=== PATIENT | female | born 1945 | race Caucasian/White ===

== ENCOUNTER 2020-04-04 09:10 | Emergency (ER) | payer MEDICARE, OTHER ==
[2020-04-04] MEDS: Sodium Chloride 0.9% 10 ML Syringe FLUSH PRN ×2 (09:30→15:31)
--- NOTE | 2020-04-04 09:31 | EDM.PDOC ---
ED HPI GENERAL MEDICAL PROBLEM - General Time Seen by Provider: 04/04/20 09:30 Source of Information: Reports: Patient History Limitations: Reports: No Limitations - History of Present Illness INITIAL COMMENTS - FREE TEXT/NARRATIVE: 74-year-old female with history of COPD who reports cough with some increasing shortness of breath and wheezing on 03/31/2020 and she contacted her doctor and was placed on Zithromax and prednisone. She felt that she got better the first day but for the past few days has had somewhat worsening cough with green and yellow phlegm production and this morning at approximately 7 AM after getting out of bed she developed acute onset of severe difficulty breathing and she tried her nebulizer at home without any relief. EMS was called and the patient was transported to our facility with a nebulizer treatment being given en route. The patient denies any chest pain. She has had no nausea or vomiting. She has had no definite fever. She denies any pain. Specifically no chest pain or abdominal pain or back pain. She would rate her pain as a 0/10. She has been eating and drinking normally. No dysuria or hematuria. No leg swelling. She has pretty much been quarantining at home and has had no known exposure to COVID. There are no other associated signs or symptoms. There are no other modifying factors. 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 - Related Data Allergies Allergy/AdvReac Type Severity Reaction Status Date / Time acetaminophen [From Vicodin] Allergy Itching Verified 12/25/13 09:35 hydrocodone bitartrate Allergy Itching Verified 12/25/13 09:35 [From Vicodin] Home Meds: Home Meds Albuterol Sulfate [Albuterol Sulfate HFA] 2 inhalation PO QID PRN 12/25/13 [History] Aspirin [Millie Chewable Aspirin] 81 mg PO DAILY 12/25/13 [History] Furosemide [Lasix] 10 mg PO DAILY 12/25/13 [History] Lactobacillus Acidophilus [Probiotic] 1 each PO DAILY 12/25/13 [History] Lisinopril 5 mg PO DAILY 12/25/13 [History] Metoprolol Tartrate [Lopressor] 25 mg PO BID 12/25/13 [History] Multivitamin [Multi-Vitamin Daily] 1 each PO DAILY 12/25/13 [History] Pantoprazole [ProTONIX] 40 mg PO DAILY 12/25/13 [History] Albuterol/Ipratropium [DuoNeb 3.0-0.5 MG/3 ML] 1 inh QID PRN 04/04/20 [History] Azithromycin [Zithromax] 250 mg PO DAILY 04/04/20 [History] Budesonide [Pulmicort] 0.5 mg IH BID 04/04/20 [History] Calcium Citrate/Vitamin D3 [Citracal + D Maximum Caplet] 1 tab DAILY 04/04/20 [History] Clopidogrel [Plavix] 75 mg PO DAILY 04/04/20 [History] Formoterol [Perforomist] 20 mcg INH BID 04/04/20 [History] Tiotropium [Spiriva] 18 mcg INH DAILY 04/04/20 [History] atorvaSTATin [Lipitor] 80 mg PO DAILY 04/04/20 [History] predniSONE [Prednisone] 40 mg PO DAILY 04/04/20 [History] Past Medical History Cardiovascular History: Reports: CAD, Heart Failure, High Cholesterol, Hypertension, [place], PVD Respiratory History: Reports: COPD Gastrointestinal History: Reports: GERD - Past Surgical History Cardiovascular Surgical History: Reports: Coronary Artery Stent, Percutaneous Transluminal Angioplasty, Other (See Below) (Aortobifemoral bypass graft. Femorofemoral bypass graft) Social & Family History - Tobacco Use Tobacco Use Status *Q: Former Tobacco User (Quit 8-9 years ago but was heavy smoker prior to that) - Alcohol Use Alcohol Use History: Yes Alcohol Use Frequency: Daily (One cocktail daily.) - Living Situation & Occupation Living situation: Reports: Occupation: Retired Social History Comment: Patient is a FULL CODE ED ROS GENERAL - Review of Systems Review Of Systems: See Below Constitutional: Reports: No Symptoms HEENT: Reports: No Symptoms Respiratory: Reports: Shortness of Breath, Wheezing, Cough, Sputum Cardiovascular: Reports: No Symptoms Endocrine: Reports: No Symptoms GI/Abdominal: Reports: No Symptoms : Reports: No Symptoms Musculoskeletal: Reports: No Symptoms Skin: Reports: No Symptoms Neurological: Reports: No Symptoms Hematologic/Lymphatic: Reports: No Symptoms Immunologic: Reports: No Symptoms ED EXAM, GENERAL - Physical Exam Exam: See Below Exam Limited By: No Limitations General Appearance: Alert, Moderate Distress (Some respiratory distress but awake and alert and appropriately responsive and interactive.), Obese Eye Exam: Bilateral Eye: EOMI, Normal Inspection Ears: Normal External Exam, Hearing Grossly Normal Ear Exam: Bilateral Ear: Auricle Normal Nose: Normal Inspection, Normal Mucosa, No Blood Throat/Mouth: Normal Inspection, Normal Oropharynx, Normal Voice, No Airway Compromise Head: Atraumatic, Normocephalic Neck: Normal Inspection, Supple, Non-Tender, Full Range of Motion Respiratory/Chest: Chest Non-Tender, Rhonchi, Wheezing, Accessory Muscle Use, Other (Poor air movement) Cardiovascular: Normal Peripheral Pulses, Regular Rate, Rhythm, No Gallop, No Murmur Peripheral Pulses: 0: Dorsalis Pedis (R) (No palpable right DP good perfusion to that foot with capillary refill that was brisk), 2+: Radial (L), Radial (R), D orsalis Pedis (L) GI/Abdominal: Normal Bowel Sounds, Soft, Non-Tender, No Mass Back Exam: Normal Inspection, Full Range of Motion Extremities: Normal Inspection, Normal Range of Motion, Non-Tender, No Pedal Edema, Normal Capillary Refill Neurological: Alert, Oriented, CN II-XII Intact, Normal Cognition, No Motor/Sensory Deficits Psychiatric: Normal Affect Skin Exam: Warm, Dry, Intact, Normal Color, No Rash #1 Interpretation EKG Date: 04/04/20 Time: : Rhythm: NSR Rate (Beats/Min): 74 Coral: LAD-Left Coral Deviation (Slight left axis) P-Wave: Present QRS: Normal ST-T: Normal QT: Normal Comparison: NA - No Prior EKG Course - Vital Signs Last Recorded V/S: Last Vital Signs Temp 36.3 C 04/04/20 09:10 Pulse 90 04/04/20 09:10 Resp 27 H 04/04/20 09:10 BP 116/87 04/04/20 09:10 Pulse Ox 100 04/04/20 09:30 - Orders/Labs/Meds Labs: Laboratory Tests 04/04/20 04/04/20 04/04/20 Range/Units 09:30 09:30 09:30 WBC 12.0 H (3.0-10.3) x10-3/uL RBC 3.94 (3.60-5.20) x10(6)uL Hgb 12.5 (11.4-15.5) g/dL Hct 37.3 (34.2-48.2) % MCV 94.7 (76.7-100.5) fL MCH 31.7 (23.9-33.9) pg MCHC 33.5 (31.9-34.8) g/dL RDW 14.8 (12.3-16.5) % Plt Count 333 (151-488) x10(3)uL MPV 7.3 (7.1-12.4) fL Neut % (Auto) 77.1 H (30.8-76.2) % Lymph % (Auto) 15.3 L (18.4-52.1) % Park % (Auto) 5.7 (4.4-15.7) % Eos % (Auto) 1.6 (0.6-8.1) % Baso % (Auto) 0.3 (0.2-1.5) % Neut # (Auto) 9.3 H (1.5-6.3) x10-3/uL Lymph # (Auto) 1.8 (1.0-4.4) x10-3/uL Park # (Auto) 0.7 (0.3-1.0) x10-3/uL Eos # (Auto) 0.2 (0.0-0.8) x10-3/uL Baso # (Auto) 0.0 (0.0-0.1) x10-3/uL D-Dimer, Quantitative (0.0-0.59) mg/LFEU POC VBG pH (7.32-7.43) pH Units POC VBG pCO2 (41-51) mmHg POC VBG HCO3 (21-29) mmol/L VBG Base Excess (-2-3) mmol/L O2 Delivery Device Sodium 133 L (135-145) mmol/L Potassium 4.2 (3.5-5.3) mmol/L Chloride 96 L (100-110) mmol/L Carbon Dioxide 29 (21-32) mmol/L BUN 14 (7-18) mg/dL Creatinine 1.0 (0.55-1.02) mg/dL Est Cr Clr Drug Dosing TNP Estimated GFR (MDRD) 54 L (>60) BUN/Creatinine Ratio 14.0 (9-20) Glucose 115 (80-116) mg/dL Lactic Acid (0.4-2.0) mmol/L Calcium 9.4 (8.6-10.2) mg/dL Total Bilirubin 0.5 (0.1-1.3) mg/dL AST 19 (5-25) IU/L ALT 22 (12-36) U/L Alkaline Phosphatase 71 (56-112) IU/L Troponin I 11.0 (4.0-60.3) pg/mL C-Reactive Protein 0.3 L (0.5-0.9) mg/dL NT-Pro-B Natriuret Pep 1571 H* (<=125) pg/mL Total Protein 7.9 (6.0-8.0) g/dL Albumin 3.7 (3.2-4.6) g/dL Globulin 4.2 g/dL Albumin/Globulin Ratio 0.9 Urine Color (YELLOW) Urine Appearance (CLEAR) Urine pH (5.0-6.5) Ur Specific [place] (1.010-1.025) Urine Protein (NEGATIVE) mg/dL Urine Glucose (UA) (NORMAL) mg/dL Urine Ketones (NEGATIVE) mg/dL Urine Occult Blood (NEGATIVE) Urine Nitrite (NEGATIVE) Urine Bilirubin (NEGATIVE) Urine Urobilinogen (NEGATIVE) mg/dL Ur Leukocyte Esterase (NEGATIVE) Urine RBC (0-5) Urine WBC (0-5) Urine Bacteria (NS) SARS-CoV-2 RNA (SHAWANDA) (NEGATIVE) 04/04/20 04/04/20 04/04/20 Range/Units 09:30 09:30 09:30 WBC (3.0-10.3) x10-3/uL RBC (3.60-5.20) x10(6)uL Hgb (11.4-15.5) g/dL Hct (34.2-48.2) % MCV (76.7-100.5) fL MCH (23.9-33.9) pg MCHC (31.9-34.8) g/dL RDW (12.3-16.5) % Plt Count (151-488) x10(3)uL MPV (7.1-12.4) fL Neut % (Auto) (30.8-76.2) % Lymph % (Auto) (18.4-52.1) % Park % (Auto) (4.4-15.7) % Eos % (Auto) (0.6-8.1) % Baso % (Auto) (0.2-1.5) % Neut # (Auto) (1.5-6.3) x10-3/uL Lymph # (Auto) (1.0-4.4) x10-3/uL Park # (Auto) (0.3-1.0) x10-3/uL Eos # (Auto) (0.0-0.8) x10-3/uL Baso # (Auto) (0.0-0.1) x10-3/uL D-Dimer, Quantitative 2.99 H (0.0-0.59) mg/LFEU POC VBG pH 7.38 (7.32-7.43) pH Units POC VBG pCO2 43 (41-51) mmHg POC VBG HCO3 26 (21-29) mmol/L VBG Base Excess 1 (-2-3) mmol/L O2 Delivery Device Nasal cannula Sodium (135-145) mmol/L Potassium (3.5-5.3) mmol/L Chloride (100-110) mmol/L Carbon Dioxide (21-32) mmol/L BUN (7-18) mg/dL Creatinine (0.55-1.02) mg/dL Est Cr Clr Drug Dosing Estimated GFR (MDRD) (>60) BUN/Creatinine Ratio (9-20) Glucose (80-116) mg/dL Lactic Acid 1.9 (0.4-2.0) mmol/L Calcium (8.6-10.2) mg/dL Total Bilirubin (0.1-1.3) mg/dL AST (5-25) IU/L ALT (12-36) U/L Alkaline Phosphatase (56-112) IU/L Troponin I (4.0-60.3) pg/mL C-Reactive Protein (0.5-0.9) mg/dL NT-Pro-B Natriuret Pep (<=125) pg/mL Total Protein (6.0-8.0) g/dL Albumin (3.2-4.6) g/dL Globulin g/dL Albumin/Globulin Ratio Urine Color (YELLOW) Urine Appearance (CLEAR) Urine pH (5.0-6.5) Ur Specific [place] (1.010-1.025) Urine Protein (NEGATIVE) mg/dL Urine Glucose (UA) (NORMAL) mg/dL Urine Ketones (NEGATIVE) mg/dL Urine Occult Blood (NEGATIVE) Urine Nitrite (NEGATIVE) Urine Bilirubin (NEGATIVE) Urine Urobilinogen (NEGATIVE) mg/dL Ur Leukocyte Esterase (NEGATIVE) Urine RBC (0-5) Urine WBC (0-5) Urine Bacteria (NS) SARS-CoV-2 RNA (SHAWANDA) (NEGATIVE) 04/04/20 04/04/20 Range/Units 10:14 10:44 WBC (3.0-10.3) x10-3/uL RBC (3.60-5.20) x10(6)uL Hgb (11.4-15.5) g/dL Hct (34.2-48.2) % MCV (76.7-100.5) fL MCH (23.9-33.9) pg MCHC (31.9-34.8) g/dL RDW (12.3-16.5) % Plt Count (151-488) x10(3)uL MPV (7.1-12.4) fL Neut % (Auto) (30.8-76.2) % Lymph % (Auto) (18.4-52.1) % Park % (Auto) (4.4-15.7) % Eos % (Auto) (0.6-8.1) % Baso % (Auto) (0.2-1.5) % Neut # (Auto) (1.5-6.3) x10-3/uL Lymph # (Auto) (1.0-4.4) x10-3/uL Park # (Auto) (0.3-1.0) x10-3/uL Eos # (Auto) (0.0-0.8) x10-3/uL Baso # (Auto) (0.0-0.1) x10-3/uL D-Dimer, Quantitative (0.0-0.59) mg/LFEU POC VBG pH (7.32-7.43) pH Units POC VBG pCO2 (41-51) mmHg POC VBG HCO3 (21-29) mmol/L VBG Base Excess (-2-3) mmol/L O2 Delivery Device Sodium (135-145) mmol/L Potassium (3.5-5.3) mmol/L Chloride (100-110) mmol/L Carbon Dioxide (21-32) mmol/L BUN (7-18) mg/dL Creatinine (0.55-1.02) mg/dL Est Cr Clr Drug Dosing Estimated GFR (MDRD) (>60) BUN/Creatinine Ratio (9-20) Glucose (80-116) mg/dL Lactic Acid (0.4-2.0) mmol/L Calcium (8.6-10.2) mg/dL Total Bilirubin (0.1-1.3) mg/dL AST (5-25) IU/L ALT (12-36) U/L Alkaline Phosphatase (56-112) IU/L Troponin I (4.0-60.3) pg/mL C-Reactive Protein (0.5-0.9) mg/dL NT-Pro-B Natriuret Pep (<=125) pg/mL Total Protein (6.0-8.0) g/dL Albumin (3.2-4.6) g/dL Globulin g/dL Albumin/Globulin Ratio Urine Color Yellow (YELLOW) Urine Appearance Clear (CLEAR) Urine pH 5.0 (5.0-6.5) Ur Specific [place] 1.010 (1.010-1.025) Urine Protein Negative (NEGATIVE) mg/dL Urine Glucose (UA) Normal (NORMAL) mg/dL Urine Ketones Negative (NEGATIVE) mg/dL Urine Occult Blood Negative (NEGATIVE) Urine Nitrite Negative (NEGATIVE) Urine Bilirubin Negative (NEGATIVE) Urine Urobilinogen Normal (NEGATIVE) mg/dL Ur Leukocyte Esterase Negative (NEGATIVE) Urine RBC Not seen (0-5) Urine WBC Not seen (0-5) Urine Bacteria Not seen (NS) SARS-CoV-2 RNA (SHAWANDA) Negative (NEGATIVE) Meds: Medications Discontinued Medications Generic Name Dose Route Start Last Admin Trade Name Freq PRN Reason Stop Dose Admin Albuterol 2.5 mg 04/04/20 14:12 04/04/20 15:23 Proventil Neb Soln NEB 04/04/20 14:13 2.5 mg ONETIME ONE Administration Albuterol/Ipratropium 3 ml 04/04/20 14:12 04/04/20 15:23 Duoneb 3.0-0.5 Mg/3 Ml NEB 04/04/20 14:13 3 ml ONETIME ONE Administration Ceftriaxone Sodium 2 gm 04/04/20 14:14 04/04/20 15:24 Rocephin IVPUSH 04/04/20 14:15 2 gm ONETIME ONE Administration Iopamidol 75 ml 04/04/20 12:59 04/04/20 13:21 Isovue-370 (76%) IV 04/04/20 13:00 75 ml . DIRECTED ONE Administration Methylprednisolone Sodium Succinate 125 mg 04/04/20 10:12 04/04/20 10:22 Solu-Medrol IVPUSH 04/04/20 10:13 125 mg ONETIME ONE Administration Sodium Chloride 10 ml 04/04/20 09:45 04/04/20 15:31 Saline Flush FLUSH 10 ml ASDIRECTED PRN Administration Keep Vein Open - Radiology Interpretation Free Text/Narrative:: Portable chest x-ray showed no definite pneumonia. There was blunting of the left CPA. There is some increased pulmonary vascularity. - Re-Assessments/Exams Free Text/Narrative Re-Assessment/Exam: 04/04/20 10:00: Patient's respiratory rate has decreased. She has an O2 saturation of 96% on room air but when she gets up in does drop into the 86-87% range and she does get short of breath. Her chest x-ray shows no definite pn eumonia. Her BNP was somewhat up. I am awaiting the COVID test and I am also awaiting a d-dimer. Her other labs are reassuringly normal. Her EKG was normal. I will give the patient Solu-Medrol 125 mg IV. 04/04/20 11:50: The patient's d-dimer was elevated and I have ordered CTA of her chest. The patient remained somewhat dyspneic with the restroom rate and the mid 20s. She is now on 2 L/m via nasal cannula with an O2 saturation of 91-93%. Her movement is somewhat improved but still somewhat restricted with wheezes. Her blood pressure and pulse are stable. She still has no pain. The patient had a rapid COVID test performed today that was negative. 04/04/20 13:55: CTA of the chest showed no evidence of pulmonary embolism. There was some evidence of bibasilar infiltrates. There was no evidence of CHF. She has remained hemodynamically and respiratory stable. She still has bilateral wheezes and decreased air movement but her rest her 8 is in the mid 20s. Her O2 saturations are 91-93% on 2 L/m via nasal cannula. I will repeat her nebulizer treatments. I'll also give the patient Rocephin 2 g IV. I discussed admission with the patient as she will need admission for nebulizer treatments, IV steroids, supple oxygen and IV antibiotics. The patient would not be comfortable being admitted to [facility] and requests transfer to [facility] in [place] were all of her doctors are located. She does have a significant cardiac history and may need cardiology specially services which are not available at [facility]. I will call and discuss the patient's case with the doctors at [facility] in [place]. 04/04/20 14:10: I called [facility] and the hospitalist will have to call me back. 04/04/20 14:35: I discussed the patient's case with Dr. Varner, hospitalist at [facility] in [place], and she will admit the patient. The patient will be transferred via ambulance to [facility] in [place] for direct admission. I discussed this with the patient and with her permission also discussed it with her and they are in agreement with this plan. Departure - Departure Time of Disposition: 16:33 Disposition: DC/Tfer to Acute Hospital 02 Condition: Fair (Stable) Clinical Impression: Acute exacerbation of chronic obstructive pulmonary disease (COPD) Respiratory failure with hypoxia Qualifiers: Chronicity: acute Qualified Code(s): J96.01 - Acute respiratory failure with hypoxia Bilateral pneumonia Qualifiers: Pneumonia type: due to unspecified organism Lung location: lower lobe of lung Qualified Code(s): J18.9 - Pneumonia, unspecified organism - Discharge Information Referrals: PCP,None [Ordering Only Provider] - Forms: ED Department Discharge
[2020-04-04] MEDS ORDERED: methylPREDNISolone Sodium Succinate 125 MG/2 ML SDV IVPUSH ONE (10:12)
[2020-04-04 10:14] LABS: PH VENOUS,POC 7.38 pH Units (7.32-7.43)
[2020-04-04 10:15] LABS: BASE EXCESS VENOUS,POC 1 mmol/L (-2-3); HCO3 VENOUS,POC 26 mmol/L (21-29); PCO2 VENOUS,POC 43 mmHg (41-51)
--- NOTE | 2020-04-04 11:36 | CR ---
INDICATION: Shortness of breath, cough. CHEST, ONE VIEW: Portable AP upright view of the chest was obtained 04/04/20 - no comparison. The heart appears somewhat enlarged. The aorta is mildly tortuous. Overlying EKG leads are noted. There is apparent fusion at the cervical spine. Evidence of exogenous obesity is noted. There is suggestion of pleural parenchymal change at the left lower lung field which could represent pneumonia and pleuritis. A full inspiration PA and lateral view of the chest may be helpful for further evaluation of that finding. Right lung and pleural space appeared unremarkable. MTDD
[2020-04-04] MEDS ORDERED: Iopamidol 755 Mg/ML 100 ML Bottle IV ONE (12:59)
[2020-04-04] MEDS ORDERED: Albuterol/Ipratropium 3.0-0.5 MG/3 ML Neb Soln NEB ONE (14:12)
[2020-04-04] MEDS ORDERED: Albuterol 0.083% 2.5 MG/3 ML Neb Soln NEB ONE (14:12)
[2020-04-04] MEDS ORDERED: cefTRIAXone 2 GM Vial IVPUSH ONE (14:14)
--- NOTE | 2020-04-04 15:58 | CT ---
INDICATION: Shortness of breath. Elevated D-dimer. History of previous heavy smoking. COMPUTERIZED TOMOGRAPHY ANGIOGRAPHY OF THE CHEST WITH CONTRAST: Spiral 1.25 mm axial sections were obtained through the chest with 75 mL Isovue-370 at 3 cc/second. Examination was obtained 04/04/20 and is compared with a chest x-ray from the same date. Total exam DLP was 797.30 mGy-cm. Calcifications are noted in brachiocephalic arteries, the arch of the aorta, descending thoracic aorta, and coronary arteries. The heart did not appear enlarged. No pericardial effusion was seen. No mediastinal mass was identified. No significant mediastinal lymphadenopathy is noted. In the upper abdomen visualized, the abdominal aorta, splenic, renal, and superior mesenteric arteries showed evidence of calcifications. Renal cortical irregularities, compatible with a moderate degree of renal cortical scarring and some thinning on the right compared with the left. The right adrenal gland was essentially normal. On the left, there is some prominence and possibly a low-density oval lesion measuring approximately 23 mm and relatively low in density at approximately 12.9 Hounsfield units. Most likely this finding is on the basis of an adrenal adenoma. However, a scan dedicated to the adrenals may be necessary without and with IV contrast for confirmation. Cholelithiasis is also suggested. No evidence of cholecystitis was seen. Slightly heavy markings at the lung bases may represent some minimal fibrosis with a similar appearance in the lingula, perhaps slightly more prominent than at the lower lobes. A similar appearance is also noted at the lung base in the middle lobe at the right lung base. No definite nodular mass was identified. No definite pulmonary emboli could be identified. Findings suggesting COPD are noted. IMPRESSION: 1. No definite evidence of PE. 2. Probable COPD. 3. Areas of basilar subpleural density likely on the basis of fibrosis both anteriorly and posteriorly. 4. ASHD/ASD. 5. Degenerative changes and disk disease thoracolumbar spine extending into the upper thoracic spine. 6. Cholelithiasis. Report was called to Dr. Mishra at 1342 hours. [facility]
[2020-04-04 20:53] VITALS: BP 116/87; PULSE 90
== END 2020-04-04 16:33 ==
LOC: FB.ED 09:10
DX: J96.01 Acute respiratory failure with hypoxia (principal); J44.1 Chronic obstructive pulmonary disease with (acute) exacerbation; J18.9 Pneumonia, unspecified organism; I25.10 Atherosclerotic heart disease of native coronary artery without angina pectoris; I11.0 Hypertensive heart disease with heart failure; I50.9 Heart failure, unspecified; I25.2 Old myocardial infarction; K21.9 Gastro-esophageal reflux disease without esophagitis; E78.00 Pure hypercholesterolemia, unspecified; Z79.02 Long term (current) use of antithrombotics/antiplatelets; Z87.891 Personal history of nicotine dependence; Z88.6 Allergy status to analgesic agent; Z88.5 Allergy status to narcotic agent; Z79.82 Long term (current) use of aspirin; Z79.899 Other long term (current) drug therapy; Z20.828 Contact with and (suspected) exposure to other viral communicable diseases
CPT/HCPCS: 36415; 71045; 71275; 80053; 81001; 83605; 83880; 84484; 85025; 85379; 86140; 87040; 93005; 94640; 96374; 96375; 99285-25; J0696; J2930; J7620-GY; Q9967; U0002

== ENCOUNTER 2022-06-17 22:01 | Emergency (ER) | payer MEDICARE, OTHER ==
[2022-06-17] MEDS ORDERED: Aspirin 81 MG Tab.Chew PO ONE (22:19)
[2022-06-17] MEDS ORDERED: Nitroglycerin 0.4 MG Tab.SL SL ONE (22:19)
[2022-06-17] MEDS ORDERED: Morphine 2 MG/ML SYRINGE IVPUSH ONE (22:19)
[2022-06-17] MEDS: Metoprolol Tartrate 5 MG/5 ML SDV IVPUSH ONE (22:26)
[2022-06-17 22:37] LABS: ESTIMATED GFR 39 mL/min (>60)
[2022-06-18 00:48] VITALS: BP 169/85; PULSE 77
[2022-06-18] MEDS: Metoprolol Tartrate 5 MG/5 ML SDV IVPUSH ONE (00:59)
[2022-06-18] MEDS ORDERED: Heparin Sodium/0.45% NaCl 25,000 UNITS/500 ML BAG IV SCH (01:15)
[2022-06-18] MEDS ORDERED: Heparin Sodium 5,000 Units/ML Vial IV ONE (01:45)
== END 2022-06-18 02:07 ==
LOC: FB.ED 22:01
DX: I21.4 Non-ST elevation (NSTEMI) myocardial infarction (principal); N28.9 Disorder of kidney and ureter, unspecified; R79.89 Other specified abnormal findings of blood chemistry; I11.0 Hypertensive heart disease with heart failure; I50.9 Heart failure, unspecified; J44.9 Chronic obstructive pulmonary disease, unspecified; I25.2 Old myocardial infarction; K21.9 Gastro-esophageal reflux disease without esophagitis; E66.9 Obesity, unspecified; Z68.30 Body mass index [BMI] 30.0-30.9, adult; Z79.02 Long term (current) use of antithrombotics/antiplatelets; Z88.5 Allergy status to narcotic agent; Z88.8 Allergy status to other drugs, medicaments and biological substances; Z79.82 Long term (current) use of aspirin; Z79.899 Other long term (current) drug therapy; Z95.5 Presence of coronary angioplasty implant and graft
CPT/HCPCS: 36415; 71045; 80053; 83880; 84484; 85025; 85610; 85730; 86140; 93005; 93010; 96365; 96375; 99285; 99285-25; A9270-GY; J1644; J2270; J3490

== ENCOUNTER 2022-09-19 02:31 | Emergency (ER) | payer MEDICARE, OTHER ==
[2022-09-19] MEDS ORDERED: Albuterol/Ipratropium 3.0-0.5 MG/3 ML Neb Soln ONE (02:33)
[2022-09-19] MEDS ORDERED: Albuterol/Ipratropium 3.0-0.5 MG/3 ML Neb Soln NEB ONE ×2 (02:35→07:59)
[2022-09-19] MEDS ORDERED: methylPREDNISolone Sodium Succinate 125 MG/2 ML SDV IVPUSH ONE (02:37)
[2022-09-19] MEDS: Sodium Chloride 0.9% 10 ML Syringe FLUSH PRN ×2 (02:45→02:47)
[2022-09-19 02:54] LABS: BASOPHILS ABSOLUTE AUTO 0.1 x10-3/uL (0.0-0.1); BASOPHILS PERCENT AUTO 0.6 % (0.2-1.5); EOSINOPHILS ABSOLUTE AUTO 0.5 x10-3/uL (0.0-0.8); EOSINOPHILS PERCENT AUTO 4.7 % (0.6-8.1); HEMATOCRIT 32.2 % (34.2-48.2); HEMOGLOBIN 10.8 g/dL (11.4-15.5); LYMPHOCYTES ABSOLUTE AUTO 2.4 x10-3/uL (1.0-4.4); LYMPHOCYTES PERCENT AUTO 21.9 % (18.4-52.1); MEAN CORPUSCULAR HGB CONC 33.6 g/dL (31.9-34.8); MEAN CORPUSCULAR VOLUME 92.1 fL (76.7-100.5); MEAN PLATELET VOLUME 7.2 fL (7.1-12.4); MONOCYTES PERCENT AUTO 8.8 % (4.4-15.7); PLATELET COUNT,PLT 226 x10(3)uL (151-488); RED CELL DISTRIBUTION WIDTH 14.2 % (12.3-16.5); WHITE BLOOD CELL COUNT,WBC 10.9 x10-3/uL (3.0-10.3)
[2022-09-19 02:58] LABS: BLOOD UREA NITROGEN,BUN 18 mg/dL (7-18); BUN/CREATININE RATIO 16.4 (9-20); CALCIUM 9.8 mg/dL (8.6-10.2); CARBON DIOXIDE,CO2 26 mmol/L (21-32); CHLORIDE,CL 93 mmol/L (100-110); CREATININE 1.1 mg/dL (0.55-1.02); EST CRCL DRUG DOSING (CG) 31.25 mL/min; ESTIMATED GFR 52 mL/min (>60); GLUCOSE RANDOM 137 mg/dL (80-116); POTASSIUM,K 4.5 mmol/L (3.5-5.3); SODIUM,NA 129 mmol/L (135-145)
[2022-09-19 03:04] LABS: A/G RATIO 1.1; ALANINE AMINOTRANSFERASE,ALT 17 U/L (12-36); ALBUMIN 3.9 g/dL (3.2-4.6); ALKALINE PHOSPHATASE 52 IU/L (56-112); ASPARTATE AMNIOTRANSFERASE,AST 27 IU/L (5-25); BILIRUBIN TOTAL 0.5 mg/dL (0.1-1.3); PROTEIN TOTAL,TP 7.4 g/dL (6.0-8.0)
[2022-09-19 03:13] LABS: TROPONIN I 110.9 pg/mL (4.0-60.3)
[2022-09-19] MEDS ORDERED: Metoprolol Tartrate 25 MG Tab PO ONE (08:41)
[2022-09-19 09:31] VITALS: BP 184/77; PULSE 120
== END 2022-09-19 15:55 ==
LOC: FB.ED 02:31 → UNDOADMOB 12:36 → FB.MS 12:36 → FB.ED 15:55
DX: J44.1 Chronic obstructive pulmonary disease with (acute) exacerbation (principal); I25.10 Atherosclerotic heart disease of native coronary artery without angina pectoris; I11.0 Hypertensive heart disease with heart failure; I50.9 Heart failure, unspecified; E78.00 Pure hypercholesterolemia, unspecified; I25.2 Old myocardial infarction; K21.9 Gastro-esophageal reflux disease without esophagitis; E66.9 Obesity, unspecified; Z68.35 Body mass index [BMI] 35.0-35.9, adult; Z79.01 Long term (current) use of anticoagulants; Z88.5 Allergy status to narcotic agent; Z79.82 Long term (current) use of aspirin; Z79.02 Long term (current) use of antithrombotics/antiplatelets; Z79.899 Other long term (current) drug therapy; Z20.822 Contact with and (suspected) exposure to COVID-19
CPT/HCPCS: 36415; 71045; 80053; 83880; 84484; 85025; 93005; 93010; 94640; 96374; 99284; 99285; A9270; J2930; J3490; U0002; J7620

== ENCOUNTER 2023-06-18 07:06 | Inpatient (IN) | payer MEDICARE, OTHER ==
[2023-06-18 08:02] LABS: HEMATOCRIT 37.6 % (34.2-48.2); HEMOGLOBIN 12.5 g/dL (11.4-15.5); MEAN CORPUSCULAR HGB CONC 33.3 g/dL (31.9-34.8); MEAN CORPUSCULAR VOLUME 93.2 fL (76.7-100.5); MEAN PLATELET VOLUME 7.5 fL (7.1-12.4); PLATELET COUNT,PLT 191 x10(3)uL (151-488); RED BLOOD CELL COUNT 4.03 x10(6)uL (3.60-5.20); RED CELL DISTRIBUTION WIDTH 13.8 % (12.3-16.5); WHITE BLOOD CELL COUNT,WBC 17.2 x10-3/uL (3.0-10.3)
[2023-06-18 08:04] LABS: BLOOD UREA NITROGEN,BUN 20 mg/dL (7-18); BUN/CREATININE RATIO 16.7 (9-20); CALCIUM 9.5 mg/dL (8.6-10.2); CARBON DIOXIDE,CO2 26 mmol/L (21-32); CHLORIDE,CL 100 mmol/L (100-110); CREATININE 1.2 mg/dL (0.55-1.02); ESTIMATED GFR 47 mL/min (>60); GLUCOSE RANDOM 147 mg/dL (80-116); POTASSIUM,K 3.5 mmol/L (3.5-5.3); SODIUM,NA 137 mmol/L (135-145)
[2023-06-18 08:10] LABS: A/G RATIO 1.1; ALANINE AMINOTRANSFERASE,ALT 18 U/L (12-36); ALBUMIN 3.6 g/dL (3.2-4.6); ALKALINE PHOSPHATASE 56 IU/L (56-112); ASPARTATE AMNIOTRANSFERASE,AST 19 IU/L (5-25); BILIRUBIN TOTAL 0.5 mg/dL (0.1-1.3); PROTEIN TOTAL,TP 6.9 g/dL (6.0-8.0)
[2023-06-18 08:17] LABS: EOSINOPHILS PERCENT MAN 1 % (0-5); LYMPHOCYTES PERCENT MAN 5 % (13-37); MONOCYTES PERCENT MAN 6 % (4-12); SEG NEUTROPHILS PERCENT MAN 88 % (46-82)
[2023-06-18 09:10] LABS: INFLUENZA A NAA NEGATIVE (NEGATIVE); INFLUENZA B NAA NEGATIVE (NEGATIVE); RESPIRATORY SYNCYTIAL VIR NAA NEGATIVE (NEGATIVE)
[2023-06-18 09:15] LABS: CORONAVIRUS COVID-19 NAA NEGATIVE (NEGATIVE)
[2023-06-18 09:40] LABS: BILIRUBIN,URINE NEGATIVE (NEGATIVE); GLUCOSE,URINE NORMAL (NORMAL); KETONES,URINE NEGATIVE (NEGATIVE); LEUKOCYTE ESTERASE,URINE NEGATIVE (NEGATIVE); NITRITE,URINE NEGATIVE (NEGATIVE); OCCULT BLOOD,URINE MODERATE (NEGATIVE); PROTEIN,URINE TRACE mg/dL (NEGATIVE); UROBILINOGEN,URINE NORMAL (NEGATIVE)
[2023-06-18 09:41] LABS: APPEARANCE,URINE CLEAR (CLEAR); BACTERIA,URINE FEW (NS); COLOR,URINE YELLOW (YELLOW); RBC,URINE 0-5 (0-5); SQUAMOUS EPITHELIAL CELLS,UR FEW (NS,R,O); WBC,URINE 0-5 (0-5)
[2023-06-18] MEDS: Sodium Chloride 0.9% 1,000 ML IV SCH (09:46)
[2023-06-18] MEDS ORDERED: Albuterol/Ipratropium 3.0-0.5 MG/3 ML Neb Soln INH ONE (09:46)
[2023-06-18] MEDS: Albuterol/Ipratropium 3.0-0.5 MG/3 ML Neb Soln NEB ONE (09:46)
[2023-06-18] MEDS: methylPREDNISolone Sodium Succinate 125 MG/2 ML SDV IVPUSH ONE (09:46)
[2023-06-18 09:48] LABS: LACTIC ACID 1.7 mmol/L (0.4-2.0)
[2023-06-18] MEDS: Iopamidol 755 Mg/ML 100 ML Bottle IV SCH (10:04)
[2023-06-18] MEDS: Metoprolol Tartrate 25 MG Tab PO ONE (10:29)
[2023-06-18] MEDS: cefTRIAXone 1 GM Vial IVPUSH SCH (11:49)
[2023-06-18] MEDS: Azithromycin 500 MG in Sodium Chloride 0.9% 250 ML IV SCH (11:50)
[2023-06-18] MEDS ORDERED: Ondansetron 4 MG Tab.DIS PO PRN (12:46)
[2023-06-18] MEDS ORDERED: Polyethylene Glycol 3350 Powder 17 GM Packet PO PRN (12:46)
[2023-06-18] MEDS ORDERED: Albuterol 6.7 GM Inhaler INH PRN (12:46)
[2023-06-18] MEDS: Enoxaparin 30 MG/0.3 ML Syringe SUBCUT SCH (13:46)
[2023-06-18] MEDS: Acetaminophen 325 MG Tab PO PRN (14:49)
[2023-06-18] MEDS: Metoprolol Tartrate 25 MG Tab PO SCH (21:04)
[2023-06-18] MEDS: Budesonide 0.5 MG/2 ML Neb Susp INH SCH (21:08)
[2023-06-18] MEDS: FORMOTEROL 20 MCG/2 ML INH SCH (21:09)
[2023-06-18] MEDS: Cefepime 1 GM Vial IVPUSH SCH (21:11)
[2023-06-19 06:59] LABS: HEMATOCRIT 33.4 % (34.2-48.2); HEMOGLOBIN 11.2 g/dL (11.4-15.5); MEAN CORPUSCULAR HEMOGLOBIN 31.3 pg (23.9-33.9); MEAN CORPUSCULAR HGB CONC 33.4 g/dL (31.9-34.8); MEAN CORPUSCULAR VOLUME 93.5 fL (76.7-100.5); MEAN PLATELET VOLUME 7.7 fL (7.1-12.4); PLATELET COUNT,PLT 170 x10(3)uL (151-488); RED BLOOD CELL COUNT 3.57 x10(6)uL (3.60-5.20); RED CELL DISTRIBUTION WIDTH 14.2 % (12.3-16.5); WHITE BLOOD CELL COUNT,WBC 17.8 x10-3/uL (3.0-10.3)
[2023-06-19 07:11] LABS: A/G RATIO 0.9; ALANINE AMINOTRANSFERASE,ALT 14 U/L (12-36); ALBUMIN 3.1 g/dL (3.2-4.6); ALKALINE PHOSPHATASE 45 IU/L (56-112); ASPARTATE AMNIOTRANSFERASE,AST 18 IU/L (5-25); BILIRUBIN TOTAL 0.4 mg/dL (0.1-1.3); BLOOD UREA NITROGEN,BUN 20 mg/dL (7-18); BUN/CREATININE RATIO 16.7 (9-20); CALCIUM 9.3 mg/dL (8.6-10.2); CARBON DIOXIDE,CO2 26 mmol/L (21-32); CHLORIDE,CL 104 mmol/L (100-110); CREATININE 1.2 mg/dL (0.55-1.02); ESTIMATED GFR 47 mL/min (>60); GLUCOSE RANDOM 129 mg/dL (80-116); POTASSIUM,K 3.7 mmol/L (3.5-5.3); PROTEIN TOTAL,TP 6.5 g/dL (6.0-8.0); SODIUM,NA 139 mmol/L (135-145)
[2023-06-19 07:29] LABS: BAND PERCENT MAN 3 % (0-6); LYMPHOCYTES PERCENT MAN 3 % (13-37); MONOCYTES PERCENT MAN 8 % (4-12); SEG NEUTROPHILS PERCENT MAN 86 % (46-82)
[2023-06-19 07:30] LABS: POIKILOCYTOSIS FEW
[2023-06-19] MEDS: Clopidogrel 75 MG Tab PO SCH (08:09)
[2023-06-19] MEDS: Pantoprazole 40 MG Tab.CR PO SCH (08:10)
[2023-06-19] MEDS: methylPREDNISolone Sodium Succinate 125 MG/2 ML SDV IVPUSH SCH (08:10)
[2023-06-19] MEDS: Tiotropium Bromide 4 GM Inhalation Spray (2.5mcg/1 dose; 10 doses) INH SCH (08:10)
[2023-06-19] MEDS: Aspirin 81 MG Tab.Chew PO SCH (08:10)
[2023-06-19] MEDS: Doxycycline 100 MG Tab PO SCH (08:14)
[2023-06-19] MEDS: Rosuvastatin 20 MG Tab PO SCH (08:34)
[2023-06-19] MEDS: Sodium Chloride 0.9% 10 ML Syringe FLUSH PRN (08:39)
[2023-06-19] MEDS: Enoxaparin 30 MG/0.3 ML Syringe SUBCUT SCH (20:16)
[2023-06-19] MEDS: Albuterol/Ipratropium 3.0-0.5 MG/3 ML Neb Soln INH PRN (21:18)
[2023-06-19] MEDS: Furosemide 40 MG/4 ML VIAL IVPUSH ONE (23:42)
[2023-06-20 06:37] LABS: HEMATOCRIT 36.7 % (34.2-48.2); HEMOGLOBIN 12.2 g/dL (11.4-15.5); MEAN CORPUSCULAR HEMOGLOBIN 30.9 pg (23.9-33.9); MEAN CORPUSCULAR HGB CONC 33.3 g/dL (31.9-34.8); MEAN CORPUSCULAR VOLUME 92.7 fL (76.7-100.5); MEAN PLATELET VOLUME 7.6 fL (7.1-12.4); PLATELET COUNT,PLT 205 x10(3)uL (151-488); RED BLOOD CELL COUNT 3.96 x10(6)uL (3.60-5.20); RED CELL DISTRIBUTION WIDTH 14.2 % (12.3-16.5); WHITE BLOOD CELL COUNT,WBC 18.1 x10-3/uL (3.0-10.3)
[2023-06-20 06:50] LABS: A/G RATIO 0.9; ALANINE AMINOTRANSFERASE,ALT 24 U/L (12-36); ALBUMIN 3.6 g/dL (3.2-4.6); ALKALINE PHOSPHATASE 56 IU/L (56-112); ASPARTATE AMNIOTRANSFERASE,AST 24 IU/L (5-25); BILIRUBIN TOTAL 0.5 mg/dL (0.1-1.3); BLOOD UREA NITROGEN,BUN 27 mg/dL (7-18); BUN/CREATININE RATIO 19.3 (9-20); CALCIUM 10.2 mg/dL (8.6-10.2); CARBON DIOXIDE,CO2 32 mmol/L (21-32); CHLORIDE,CL 100 mmol/L (100-110); CREATININE 1.4 mg/dL (0.55-1.02); EST CRCL DRUG DOSING (CG) 24.17 mL/min; ESTIMATED GFR 39 mL/min (>60); GLUCOSE RANDOM 115 mg/dL (80-116); POTASSIUM,K 4.1 mmol/L (3.5-5.3); PROTEIN TOTAL,TP 7.5 g/dL (6.0-8.0); SODIUM,NA 139 mmol/L (135-145)
[2023-06-20 07:05] LABS: LYMPHOCYTES PERCENT MAN 4 % (13-37); MONOCYTES PERCENT MAN 4 % (4-12); SEG NEUTROPHILS PERCENT MAN 92 % (46-82)
[2023-06-20] MEDS: Cefepime 2 GM Vial IVPUSH SCH (08:48)
[2023-06-20] MEDS: predniSONE 20 MG Tab PO SCH (08:49)
[2023-06-20] MEDS: Tiotropium Bromide 4 GM Inhalation Spray (2.5mcg/1 dose; 10 doses) INH SCH (08:50)
[2023-06-20] MEDS ORDERED: Albuterol/Ipratropium 3.0-0.5 MG/3 ML Neb Soln INH PRN ×2 (09:17→09:30)
[2023-06-20] MEDS: Rosuvastatin 20 MG Tab PO SCH (20:15)
[2023-06-21 11:27] LABS: BASOPHILS PERCENT AUTO 0.1 % (0.2-1.5); EOSINOPHILS PERCENT AUTO 0.3 % (0.6-8.1); HEMATOCRIT 35.9 % (34.2-48.2); HEMOGLOBIN 12.2 g/dL (11.4-15.5); LYMPHOCYTES ABSOLUTE AUTO 1.4 x10-3/uL (1.0-4.4); LYMPHOCYTES PERCENT AUTO 11.8 % (18.4-52.1); MEAN CORPUSCULAR HEMOGLOBIN 31.5 pg (23.9-33.9); MEAN CORPUSCULAR VOLUME 92.7 fL (76.7-100.5); MEAN PLATELET VOLUME 7.6 fL (7.1-12.4); MONOCYTES ABSOLUTE AUTO 0.7 x10-3/uL (0.3-1.0); MONOCYTES PERCENT AUTO 6.3 % (4.4-15.7); NEUTROPHILS ABSOLUTE AUTO 9.5 x10-3/uL (1.5-6.3); NEUTROPHILS PERCENT AUTO 81.5 % (30.8-76.2); PLATELET COUNT,PLT 198 x10(3)uL (151-488); RED BLOOD CELL COUNT 3.87 x10(6)uL (3.60-5.20); RED CELL DISTRIBUTION WIDTH 14.1 % (12.3-16.5); WHITE BLOOD CELL COUNT,WBC 11.7 x10-3/uL (3.0-10.3)
[2023-06-21 11:30] VITALS: BP 132/54; PULSE 73
[2023-06-21 11:55] LABS: A/G RATIO 0.9; ALANINE AMINOTRANSFERASE,ALT 18 U/L (12-36); ALBUMIN 3.2 g/dL (3.2-4.6); ALKALINE PHOSPHATASE 50 IU/L (56-112); ASPARTATE AMNIOTRANSFERASE,AST 20 IU/L (5-25); BILIRUBIN TOTAL 0.5 mg/dL (0.1-1.3); BLOOD UREA NITROGEN,BUN 28 mg/dL (7-18); BUN/CREATININE RATIO 21.5 (9-20); CALCIUM 9.8 mg/dL (8.6-10.2); CARBON DIOXIDE,CO2 31 mmol/L (21-32); CHLORIDE,CL 100 mmol/L (100-110); CREATININE 1.3 mg/dL (0.55-1.02); EST CRCL DRUG DOSING (CG) 26.03 mL/min; ESTIMATED GFR 42 mL/min (>60); GLUCOSE RANDOM 90 mg/dL (80-116); POTASSIUM,K 3.6 mmol/L (3.5-5.3); PROTEIN TOTAL,TP 6.8 g/dL (6.0-8.0); SODIUM,NA 139 mmol/L (135-145)
== END 2023-06-21 11:00 | disposition home or self-care (01) | DRG 193 ==
LOC: FB.ED 07:06 → FB.MS 12:15
PROVIDERS: ADMIT Emergency Medicine; ATTEND Family Medicine
DX: J18.9 Pneumonia, unspecified organism (principal); J96.01 Acute respiratory failure with hypoxia; I13.0 Hypertensive heart and chronic kidney disease with heart failure and stage 1 through stage 4 chronic kidney disease, or unspecified chronic kidney disease; J44.1 Chronic obstructive pulmonary disease with (acute) exacerbation; N17.9 Acute kidney failure, unspecified; J44.9 Chronic obstructive pulmonary disease, unspecified; I25.10 Atherosclerotic heart disease of native coronary artery without angina pectoris; I50.9 Heart failure, unspecified; E78.00 Pure hypercholesterolemia, unspecified; H91.90 Unspecified hearing loss, unspecified ear; K21.9 Gastro-esophageal reflux disease without esophagitis; F32.A Depression, unspecified; E66.9 Obesity, unspecified; N18.9 Chronic kidney disease, unspecified; G47.33 Obstructive sleep apnea (adult) (pediatric); R53.1 Weakness; Z79.899 Other long term (current) drug therapy; Z79.82 Long term (current) use of aspirin; Z79.51 Long term (current) use of inhaled steroids; Z88.8 Allergy status to other drugs, medicaments and biological substances; Z79.02 Long term (current) use of antithrombotics/antiplatelets; I25.2 Old myocardial infarction; Z68.33 Body mass index [BMI] 33.0-33.9, adult; Z95.5 Presence of coronary angioplasty implant and graft; Z95.820 Peripheral vascular angioplasty status with implants and grafts; Z87.891 Personal history of nicotine dependence; Z11.52 Encounter for screening for COVID-19; Z85.118 Personal history of other malignant neoplasm of bronchus and lung
CPT/HCPCS: 0241U; 36415; 71045; 71260; 80053; 81001; 82550; 83605; 83880; 84484; 85025; 87040; 87070; 87077; 87186; 87205; 93005; 93010; 94640; 94669; 94762; 96361; 96374; 96375; 99285; 99285-25; A9270-GY; J0456; J0692; J0696; J1650; J1940; J2930; J3490; J7030; J7050; J7512; J7620; Q9967

== ENCOUNTER 2023-12-28 09:35 | Emergency (ER) | payer MEDICARE, OTHER ==
[2023-12-28] MEDS: Ketorolac 30 MG/ML SDV IVPUSH ONE (10:18)
[2023-12-28 10:19] LABS: BASOPHILS PERCENT AUTO 0.5 % (0.2-1.5); EOSINOPHILS ABSOLUTE AUTO 0.3 x10-3/uL (0.0-0.8); EOSINOPHILS PERCENT AUTO 3.6 % (0.6-8.1); HEMATOCRIT 35.7 % (34.2-48.2); LYMPHOCYTES ABSOLUTE AUTO 1.2 x10-3/uL (1.0-4.4); LYMPHOCYTES PERCENT AUTO 13.9 % (18.4-52.1); MEAN CORPUSCULAR HEMOGLOBIN 31.4 pg (23.9-33.9); MEAN CORPUSCULAR HGB CONC 33.5 g/dL (31.9-34.8); MEAN CORPUSCULAR VOLUME 93.5 fL (76.7-100.5); MEAN PLATELET VOLUME 6.7 fL (7.1-12.4); MONOCYTES ABSOLUTE AUTO 0.6 x10-3/uL (0.3-1.0); MONOCYTES PERCENT AUTO 7.2 % (4.4-15.7); NEUTROPHILS ABSOLUTE AUTO 6.3 x10-3/uL (1.5-6.3); NEUTROPHILS PERCENT AUTO 74.8 % (30.8-76.2); PLATELET COUNT,PLT 222 x10(3)uL (151-488); RED BLOOD CELL COUNT 3.82 x10(6)uL (3.60-5.20); RED CELL DISTRIBUTION WIDTH 14.6 % (12.3-16.5); WHITE BLOOD CELL COUNT,WBC 8.4 x10-3/uL (3.0-10.3)
[2023-12-28] MEDS: Sodium Chloride 0.9% 1,000 ML IV ONE (10:20)
[2023-12-28 10:27] LABS: BLOOD UREA NITROGEN,BUN 16 mg/dL (7-18); BUN/CREATININE RATIO 14.5 (9-20); CALCIUM 9.5 mg/dL (8.6-10.2); CARBON DIOXIDE,CO2 29 mmol/L (21-32); CHLORIDE,CL 102 mmol/L (100-110); CREATININE 1.1 mg/dL (0.55-1.02); EST CRCL DRUG DOSING (CG) 30.76 mL/min; ESTIMATED GFR 52 mL/min (>60); GLUCOSE RANDOM 111 mg/dL (80-116); SODIUM,NA 139 mmol/L (135-145)
[2023-12-28 10:33] LABS: ALANINE AMINOTRANSFERASE,ALT 14 U/L (12-36); ALBUMIN 3.5 g/dL (3.2-4.6); ALKALINE PHOSPHATASE 52 IU/L (56-112); ASPARTATE AMNIOTRANSFERASE,AST 20 IU/L (5-25); BILIRUBIN TOTAL 0.7 mg/dL (0.1-1.3)
[2023-12-28 11:31] LABS: BILIRUBIN,URINE NEGATIVE (NEGATIVE); GLUCOSE,URINE NORMAL (NORMAL); KETONES,URINE NEGATIVE (NEGATIVE); LEUKOCYTE ESTERASE,URINE NEGATIVE (NEGATIVE); NITRITE,URINE NEGATIVE (NEGATIVE); OCCULT BLOOD,URINE NEGATIVE (NEGATIVE); PROTEIN,URINE NEGATIVE (NEGATIVE); UROBILINOGEN,URINE NORMAL (NEGATIVE)
[2023-12-28 11:54] LABS: APPEARANCE,URINE CLEAR (CLEAR); BACTERIA,URINE RARE (NS); COLOR,URINE YELLOW (YELLOW); RBC,URINE 0-5 (0-5); SQUAMOUS EPITHELIAL CELLS,UR RARE (NS,R,O); WBC,URINE 0-5 (0-5)
[2023-12-28 19:23] VITALS: BP 162/97; PULSE 77
== END 2023-12-28 13:30 | disposition home or self-care (01) ==
LOC: FB.ED 09:35
DX: S82.435A Nondisplaced oblique fracture of shaft of left fibula, initial encounter for closed fracture (principal); I25.10 Atherosclerotic heart disease of native coronary artery without angina pectoris; I11.0 Hypertensive heart disease with heart failure; I50.9 Heart failure, unspecified; E78.00 Pure hypercholesterolemia, unspecified; I25.2 Old myocardial infarction; J44.9 Chronic obstructive pulmonary disease, unspecified; K21.9 Gastro-esophageal reflux disease without esophagitis; E66.9 Obesity, unspecified; Z79.02 Long term (current) use of antithrombotics/antiplatelets; Z79.82 Long term (current) use of aspirin; Z79.899 Other long term (current) drug therapy; Z88.8 Allergy status to other drugs, medicaments and biological substances; W18.30XA Fall on same level, unspecified, initial encounter
CPT/HCPCS: 36415; 72100; 73501-LT; 73610-LT; 80053; 81001; 84484; 85025; 86140; 96374; 99284-25; J1885; J7030

== ENCOUNTER 2024-10-05 10:52 | Emergency (ER) | payer MEDICARE, OTHER ==
[2024-10-05] MEDS: Albuterol/Ipratropium 3.0-0.5 MG/3 ML Neb Soln NEB ONE (11:11)
[2024-10-05 11:22] LABS: HEMATOCRIT 34.5 % (34.2-48.2); HEMOGLOBIN 11.9 g/dL (11.4-15.5); MEAN CORPUSCULAR HEMOGLOBIN 31.2 pg (23.9-33.9); MEAN CORPUSCULAR HGB CONC 34.6 g/dL (31.9-34.8); MEAN CORPUSCULAR VOLUME 90.1 fL (76.7-100.5); MEAN PLATELET VOLUME 7.5 fL (7.1-12.4); PLATELET COUNT,PLT 188 x10(3)uL (151-488); RED BLOOD CELL COUNT 3.82 x10(6)uL (3.60-5.20); RED CELL DISTRIBUTION WIDTH 13.4 % (12.3-16.5)
[2024-10-05 11:23] LABS: BLOOD UREA NITROGEN,BUN 17 mg/dL (7-18); BUN/CREATININE RATIO 15.5 (9-20); CALCIUM 8.6 mg/dL (8.6-10.2); CARBON DIOXIDE,CO2 28 mmol/L (21-32); CHLORIDE,CL 97 mmol/L (100-110); CREATININE 1.1 mg/dL (0.55-1.02); ESTIMATED GFR 51 mL/min (>60); GLUCOSE RANDOM 119 mg/dL (80-116); POTASSIUM,K 4.3 mmol/L (3.5-5.3); SODIUM,NA 130 mmol/L (135-145)
[2024-10-05 11:29] LABS: A/G RATIO 1.1; ALANINE AMINOTRANSFERASE,ALT 20 U/L (12-36); ALBUMIN 3.6 g/dL (3.2-4.6); ALKALINE PHOSPHATASE 52 IU/L (56-112); ASPARTATE AMNIOTRANSFERASE,AST 17 IU/L (5-25); BILIRUBIN TOTAL 0.5 mg/dL (0.1-1.3)
[2024-10-05 11:31] LABS: BAND PERCENT MAN 4 % (0-6); LYMPHOCYTES PERCENT MAN 4 % (13-37); MONOCYTES PERCENT MAN 4 % (4-12); SEG NEUTROPHILS PERCENT MAN 88 % (46-82)
[2024-10-05 11:36] LABS: TROPONIN I 12.8 pg/mL (4.0-60.3)
[2024-10-05 12:24] VITALS: BP 170/65; PULSE 70
== END 2024-10-05 12:00 | disposition home or self-care (01) ==
LOC: FB.ED 10:52
DX: I11.0 Hypertensive heart disease with heart failure (principal); I50.9 Heart failure, unspecified; J44.9 Chronic obstructive pulmonary disease, unspecified; I25.2 Old myocardial infarction; E66.9 Obesity, unspecified; K21.9 Gastro-esophageal reflux disease without esophagitis; Z88.5 Allergy status to narcotic agent; Z88.8 Allergy status to other drugs, medicaments and biological substances; Z79.51 Long term (current) use of inhaled steroids; Z79.899 Other long term (current) drug therapy; Z79.82 Long term (current) use of aspirin; Z79.01 Long term (current) use of anticoagulants; Z87.891 Personal history of nicotine dependence; Z68.45 Body mass index [BMI] 70 or greater, adult
CPT/HCPCS: 36415; 71045; 80053; 83880; 84484; 85025; 93005; 99285; A9270

== ENCOUNTER 2024-10-06 03:54 | Emergency (ER) | payer MEDICARE, OTHER ==
[2024-10-06] MEDS: fentaNYL 100 MCG/2 ML SDV IVPUSH ONE (04:07)
[2024-10-06] MEDS: Albuterol/Ipratropium 3.0-0.5 MG/3 ML Neb Soln NEB ONE (04:09)
[2024-10-06] MEDS: methylPREDNISolone Sodium Succinate 125 MG/2 ML SDV IVPUSH ONE (04:13)
[2024-10-06] MEDS: Furosemide 20 MG/2 ML VIAL IVPUSH ONE (04:14)
[2024-10-06 04:18] LABS: HEMATOCRIT 37.3 % (34.2-48.2); HEMOGLOBIN 12.6 g/dL (11.4-15.5); MEAN CORPUSCULAR HEMOGLOBIN 30.9 pg (23.9-33.9); MEAN CORPUSCULAR HGB CONC 33.8 g/dL (31.9-34.8); MEAN CORPUSCULAR VOLUME 91.4 fL (76.7-100.5); MEAN PLATELET VOLUME 7.3 fL (7.1-12.4); PLATELET COUNT,PLT 255 x10(3)uL (151-488); RED BLOOD CELL COUNT 4.08 x10(6)uL (3.60-5.20); RED CELL DISTRIBUTION WIDTH 13.7 % (12.3-16.5); WHITE BLOOD CELL COUNT,WBC 15.9 x10-3/uL (3.0-10.3)
[2024-10-06] MEDS: Albuterol/Ipratropium 3.0-0.5 MG/3 ML Neb Soln ONE (04:20)
[2024-10-06 04:25] LABS: BLOOD UREA NITROGEN,BUN 20 mg/dL (7-18); BUN/CREATININE RATIO 14.3 (9-20); CALCIUM 8.7 mg/dL (8.6-10.2); CARBON DIOXIDE,CO2 28 mmol/L (21-32); CHLORIDE,CL 98 mmol/L (100-110); CREATININE 1.4 mg/dL (0.55-1.02); ESTIMATED GFR 39 mL/min (>60); GLUCOSE RANDOM 230 mg/dL (80-116); POTASSIUM,K 3.8 mmol/L (3.5-5.3); SODIUM,NA 137 mmol/L (135-145)
[2024-10-06 04:30] LABS: ALANINE AMINOTRANSFERASE,ALT 48 U/L (12-36); ALBUMIN 3.6 g/dL (3.2-4.6); ALKALINE PHOSPHATASE 50 IU/L (56-112); ASPARTATE AMNIOTRANSFERASE,AST 60 IU/L (5-25); BILIRUBIN TOTAL 0.5 mg/dL (0.1-1.3); PROTEIN TOTAL,TP 7.2 g/dL (6.0-8.0)
[2024-10-06 04:37] LABS: TROPONIN I 19.5 pg/mL (4.0-60.3)
[2024-10-06 04:42] LABS: BAND PERCENT MAN 2 % (0-6); EST CRCL DRUG DOSING (CG) 23.79 mL/min; LYMPHOCYTES PERCENT MAN 27 % (13-37); MONOCYTES PERCENT MAN 3 % (4-12); SEG NEUTROPHILS PERCENT MAN 68 % (46-82)
[2024-10-06] MEDS: Iopamidol 755 Mg/ML 100 ML Bottle IV ONE (05:05)
[2024-10-06 06:07] VITALS: PULSE 106
[2024-10-06] MEDS: Cefepime 2 GM Vial IVPUSH ONE (06:17)
[2024-10-06 06:19] LABS: BILIRUBIN,URINE NEGATIVE (NEGATIVE); GLUCOSE,URINE NORMAL (NORMAL); KETONES,URINE NEGATIVE (NEGATIVE); LEUKOCYTE ESTERASE,URINE SMALL (NEGATIVE); NITRITE,URINE NEGATIVE (NEGATIVE); OCCULT BLOOD,URINE TRACE (NEGATIVE); PROTEIN,URINE NEGATIVE (NEGATIVE); UROBILINOGEN,URINE NORMAL (NEGATIVE)
[2024-10-06 06:22] LABS: APPEARANCE,URINE CLEAR (CLEAR); COLOR,URINE YELLOW (YELLOW)
[2024-10-06 06:23] LABS: BACTERIA,URINE OCCASIONAL (NS); RBC,URINE 0-5 (0-5); SQUAMOUS EPITHELIAL CELLS,UR OCCASIONAL (NS,R,O)
[2024-10-06 07:07] VITALS: BP 176/86
== END 2024-10-06 07:03 ==
LOC: FB.ED 03:54
DX: J96.00 Acute respiratory failure, unspecified whether with hypoxia or hypercapnia (principal); I11.0 Hypertensive heart disease with heart failure; I50.9 Heart failure, unspecified; J44.9 Chronic obstructive pulmonary disease, unspecified; E66.9 Obesity, unspecified; Z88.8 Allergy status to other drugs, medicaments and biological substances; Z79.82 Long term (current) use of aspirin; Z79.899 Other long term (current) drug therapy; Z87.891 Personal history of nicotine dependence; Z68.37 Body mass index [BMI] 37.0-37.9, adult
CPT/HCPCS: 36415; 71275; 80053; 81001; 83605; 83880; 84484; 85025; 87086; 87486; 87581; 87633; 87798; 93005; 93010; 96374; 96375; 99285; A9270; J0692; J1938; J2919; J3010; Q9967

== ENCOUNTER 2024-10-17 08:59 | Inpatient (IN) | payer MEDICARE, OTHER ==
[2024-10-17] MEDS ORDERED: Melatonin 3 MG Tab PO PRN (13:40)
[2024-10-17] MEDS ORDERED: Albuterol 6.7 GM Inhaler INH PRN (13:52)
[2024-10-17] MEDS ORDERED: LIDOCAINE 4% PATCH TOP PRN (14:05)
[2024-10-17] MEDS ORDERED: Carboxymethylcellulose Sodium 0.5% Ophth Soln 15 ML Bottle EYEBOTH PRN (14:06)
[2024-10-17] MEDS ORDERED: BETAMETHASONE VALERATE 0.1% TOP PRN (14:11)
[2024-10-17] MEDS: Spironolactone 25 MG Tab PO SCH (14:37)
[2024-10-17] MEDS: Furosemide 40 MG Tab PO SCH (14:37)
[2024-10-17] MEDS: Apixaban 5 MG Tab PO SCH (20:19)
[2024-10-17] MEDS: Budesonide 0.5 MG/2 ML Neb Susp INH SCH (20:21)
[2024-10-17] MEDS: Albuterol 0.083% 2.5 MG/3 ML Neb Soln INH SCH (20:21)
[2024-10-18] MEDS: Pantoprazole 40 MG Tab.CR PO SCH (06:16)
[2024-10-18] MEDS ORDERED: CALCIUM CITRATE PO SCH (08:00)
[2024-10-18] MEDS ORDERED: [UNRECOGNIZED DRUG - OTHER] PO SCH (08:00)
[2024-10-18] MEDS ORDERED: VITAMIN D3 PO SCH (08:00)
[2024-10-18] MEDS: Ezetimibe 10 MG Tab PO SCH (08:05)
[2024-10-18] MEDS: Tamsulosin 0.4 MG Cap.ER PO SCH (08:05)
[2024-10-18] MEDS: amLODIPine 5 MG Tab PO SCH (08:06)
[2024-10-18] MEDS: DULoxetine 20 MG Cap PO SCH (08:07)
[2024-10-18] MEDS: Rosuvastatin 20 MG Tab PO SCH (08:07)
[2024-10-18] MEDS: Mirabegron 25 MG Tab Extended Release PO SCH (08:07)
[2024-10-18] MEDS: Tiotropium Bromide 4 GM Inhalation Spray (2.5mcg/1 dose; 10 doses) INH SCH (08:08)
[2024-10-18] MEDS ORDERED: Non-Formulary Medication 1 Each (Multivitamin [Multi-Vitamin Daily] 1 EACH Tablet) PO SCH (09:00)
[2024-10-18] MEDS: Acetaminophen 325 MG Tab PO PRN (12:47)
[2024-10-18] MEDS: Diclofenac Sodium 1% Gel 100 GM Tube TOP PRN (12:48)
[2024-10-22] MEDS: Polyethylene Glycol 3350 Powder 17 GM Packet PO PRN (10:19)
[2024-10-23] MEDS: Bisacodyl 5 MG Tab PO PRN (17:10)
[2024-10-24] MEDS: Mineral Oil 133 ML BOTTLE RECTAL ONE (21:25)
[2024-10-25] MEDS: Sennosides 8.6 MG Tab PO SCH (10:52)
[2024-10-26 08:48] VITALS: BP 128/68
[2024-10-26] MEDS: amLODIPine 2.5 MG Tab PO SCH (08:58)
[2024-10-26 09:43] VITALS: PULSE 96
== END 2024-10-26 09:30 | disposition home health service (06) | DRG 948 ==
LOC: FB.MS 12:15
PROVIDERS: ADMIT Family Medicine; ATTEND Family Medicine
DX: R53.81 Other malaise (principal); I50.32 Chronic diastolic (congestive) heart failure; I13.0 Hypertensive heart and chronic kidney disease with heart failure and stage 1 through stage 4 chronic kidney disease, or unspecified chronic kidney disease; J96.11 Chronic respiratory failure with hypoxia; H54.7 Unspecified visual loss; H91.90 Unspecified hearing loss, unspecified ear; I25.10 Atherosclerotic heart disease of native coronary artery without angina pectoris; E78.00 Pure hypercholesterolemia, unspecified; I73.9 Peripheral vascular disease, unspecified; J44.9 Chronic obstructive pulmonary disease, unspecified; K21.9 Gastro-esophageal reflux disease without esophagitis; F41.9 Anxiety disorder, unspecified; F32.A Depression, unspecified; E66.9 Obesity, unspecified; N18.2 Chronic kidney disease, stage 2 (mild); K59.00 Constipation, unspecified; I95.1 Orthostatic hypotension; Z88.6 Allergy status to analgesic agent; Z88.5 Allergy status to narcotic agent; Z79.52 Long term (current) use of systemic steroids; Z79.899 Other long term (current) drug therapy; Z79.01 Long term (current) use of anticoagulants; I25.2 Old myocardial infarction; Z99.81 Dependence on supplemental oxygen; Z68.29 Body mass index [BMI] 29.0-29.9, adult; Z98.49 Cataract extraction status, unspecified eye; Z98.890 Other specified postprocedural states; Z95.5 Presence of coronary angioplasty implant and graft; Z90.49 Acquired absence of other specified parts of digestive tract
CPT/HCPCS: 94640; 97110-GO; 97110-GP; 97161-GP; 97165-GO; 97530-GO; 97530-GP; 97535-GO; 99305; 99308; 99315; A9270-GY

== ENCOUNTER 2024-12-18 23:25 | Emergency (ER) | payer MEDICARE, OTHER ==
[2024-12-18 23:59] LABS: BASOPHILS ABSOLUTE AUTO 0.0 x10-3/uL (0.0-0.1); BASOPHILS PERCENT AUTO 0.1 % (0.2-1.5); EOSINOPHILS ABSOLUTE AUTO 0.0 x10-3/uL (0.0-0.8); EOSINOPHILS PERCENT AUTO 0.1 % (0.6-8.1); LYMPHOCYTES ABSOLUTE AUTO 1.2 x10-3/uL (1.0-4.4); LYMPHOCYTES PERCENT AUTO 10.1 % (18.4-52.1); MEAN PLATELET VOLUME 7.0 fL (7.1-12.4); MONOCYTES ABSOLUTE AUTO 0.9 x10-3/uL (0.3-1.0); MONOCYTES PERCENT AUTO 7.6 % (4.4-15.7); NEUTROPHILS ABSOLUTE AUTO 9.5 x10-3/uL (1.5-6.3); NEUTROPHILS PERCENT AUTO 82.1 % (30.8-76.2); PLATELET COUNT,PLT 247 x10(3)uL (151-488); RED BLOOD CELL COUNT 3.26 x10(6)uL (3.60-5.20); RED CELL DISTRIBUTION WIDTH 13.9 % (12.3-16.5); WHITE BLOOD CELL COUNT,WBC 11.6 x10-3/uL (3.0-10.3)
[2024-12-19 00:03] LABS: BLOOD UREA NITROGEN,BUN 25 mg/dL (7-18); CARBON DIOXIDE,CO2 30 mmol/L (21-32); CHLORIDE,CL 93 mmol/L (100-110); CREATININE 1.3 mg/dL (0.55-1.02); EST CRCL DRUG DOSING (CG) 25.62 mL/min; ESTIMATED GFR 42 mL/min (>60); GLUCOSE RANDOM 128 mg/dL (80-116); POTASSIUM,K 3.9 mmol/L (3.5-5.3); SODIUM,NA 129 mmol/L (135-145)
[2024-12-19 00:08] LABS: BASE EXCESS VENOUS,POC 3 mmol/L (-2 - 3+); PCO2 VENOUS,POC 36 mmHg (41-51); PH VENOUS,POC 7.47 pH Units (7.32-7.43)
[2024-12-19 00:09] LABS: A/G RATIO 1.0; ALANINE AMINOTRANSFERASE,ALT 17 U/L (12-36); ASPARTATE AMNIOTRANSFERASE,AST 15 IU/L (5-25); BILIRUBIN TOTAL 0.6 mg/dL (0.1-1.3); PROTEIN TOTAL,TP 6.5 g/dL (6.0-8.0)
[2024-12-19] MEDS: Alum Hydroxide/Mag Hydroxide 30 ML, Lidocaine 2% 15 ML PO ONE (00:11)
[2024-12-19 00:19] LABS: PRO B-TYPE NATRIUR PEPT,BNPPRO 1014.0 pg/mL (<=450)
[2024-12-19 05:14] VITALS: BP 119/58; PULSE 68
== END 2024-12-19 06:10 | disposition home or self-care (01) ==
LOC: FB.ED 23:25
DX: K21.00 Gastro-esophageal reflux disease with esophagitis, without bleeding (principal); I13.0 Hypertensive heart and chronic kidney disease with heart failure and stage 1 through stage 4 chronic kidney disease, or unspecified chronic kidney disease; I50.9 Heart failure, unspecified; N18.9 Chronic kidney disease, unspecified; I25.10 Atherosclerotic heart disease of native coronary artery without angina pectoris; I25.2 Old myocardial infarction; E78.00 Pure hypercholesterolemia, unspecified; J44.9 Chronic obstructive pulmonary disease, unspecified; E66.9 Obesity, unspecified; Z95.5 Presence of coronary angioplasty implant and graft; Z88.5 Allergy status to narcotic agent; Z79.51 Long term (current) use of inhaled steroids; Z79.01 Long term (current) use of anticoagulants; Z79.899 Other long term (current) drug therapy
CPT/HCPCS: 36415; 71045; 80053; 83605; 83880; 84484; 85025; 86140; 94640; 99285; A9270

== ENCOUNTER 2024-12-30 20:58 | Emergency (ER) | payer MEDICARE, OTHER ==
[2024-12-30] MEDS: methylPREDNISolone Sodium Succinate 125 MG/2 ML SDV IM ONE (21:18)
[2024-12-30 21:22] LABS: BASOPHILS ABSOLUTE AUTO 0.1 x10-3/uL (0.0-0.1); BASOPHILS PERCENT AUTO 0.7 % (0.2-1.5); EOSINOPHILS ABSOLUTE AUTO 0.3 x10-3/uL (0.0-0.8); EOSINOPHILS PERCENT AUTO 2.1 % (0.6-8.1); LYMPHOCYTES ABSOLUTE AUTO 2.4 x10-3/uL (1.0-4.4); LYMPHOCYTES PERCENT AUTO 17.0 % (18.4-52.1); MEAN PLATELET VOLUME 7.2 fL (7.1-12.4); MONOCYTES ABSOLUTE AUTO 1.4 x10-3/uL (0.3-1.0); MONOCYTES PERCENT AUTO 9.8 % (4.4-15.7); NEUTROPHILS ABSOLUTE AUTO 10.0 x10-3/uL (1.5-6.3); NEUTROPHILS PERCENT AUTO 70.4 % (30.8-76.2); PLATELET COUNT,PLT 245 x10(3)uL (151-488); RED BLOOD CELL COUNT 3.72 x10(6)uL (3.60-5.20); RED CELL DISTRIBUTION WIDTH 13.8 % (12.3-16.5); WHITE BLOOD CELL COUNT,WBC 14.2 x10-3/uL (3.0-10.3)
[2024-12-30 21:28] LABS: BLOOD UREA NITROGEN,BUN 17 mg/dL (7-18); CARBON DIOXIDE,CO2 29 mmol/L (21-32); CHLORIDE,CL 90 mmol/L (100-110); CREATININE 1.2 mg/dL (0.55-1.02); ESTIMATED GFR 46 mL/min (>60); GLUCOSE RANDOM 120 mg/dL (80-116); POTASSIUM,K 3.3 mmol/L (3.5-5.3); SODIUM,NA 129 mmol/L (135-145)
[2024-12-30] MEDS: Furosemide 40 MG/4 ML VIAL IVPUSH ONE (21:28)
[2024-12-30 21:31] LABS: INR 1.12 (1.00-1.24)
[2024-12-30 21:34] LABS: A/G RATIO 0.9; ALANINE AMINOTRANSFERASE,ALT 20 U/L (12-36); ASPARTATE AMNIOTRANSFERASE,AST 30 IU/L (5-25); BILIRUBIN TOTAL 0.7 mg/dL (0.1-1.3); PROTEIN TOTAL,TP 7.1 g/dL (6.0-8.0)
[2024-12-30 21:38] LABS: LACTIC ACID 1.6 mmol/L (0.4-2.0)
[2024-12-30] MEDS: Magnesium Sulfate 2 GM/50 mL 2 GM in Premix Bag 1 BAG IV ONE (21:38)
[2024-12-30 21:45] LABS: PRO B-TYPE NATRIUR PEPT,BNPPRO 1268.0 pg/mL (<=450)
[2024-12-30] MEDS: Nystatin Topical Powder 15 GM Bottle TOP PRN (22:06)
[2024-12-30] MEDS: Sodium Chloride 0.9% 10 ML Syringe FLUSH PRN (23:15)
[2024-12-31 00:40] VITALS: BP 160/80; PULSE 119
== END 2024-12-31 00:30 ==
LOC: FB.ED 20:58
DX: J44.1 Chronic obstructive pulmonary disease with (acute) exacerbation (principal); I13.2 Hypertensive heart and chronic kidney disease with heart failure and with stage 5 chronic kidney disease, or end stage renal disease; I50.9 Heart failure, unspecified; N18.32 Chronic kidney disease, stage 3b; I48.11 Longstanding persistent atrial fibrillation; E87.1 Hypo-osmolality and hyponatremia; E87.6 Hypokalemia; I25.10 Atherosclerotic heart disease of native coronary artery without angina pectoris; E78.00 Pure hypercholesterolemia, unspecified; I25.2 Old myocardial infarction; K21.9 Gastro-esophageal reflux disease without esophagitis; Z88.5 Allergy status to narcotic agent; Z79.51 Long term (current) use of inhaled steroids; Z79.899 Other long term (current) drug therapy; Z79.01 Long term (current) use of anticoagulants; Z87.891 Personal history of nicotine dependence
CPT/HCPCS: 36415; 71045; 80053; 83605; 83735; 83880; 84484; 85025; 85610; 86140; 87040; 93005; 93010; 96365; 96372; 96375; 99285; A9270; J0696; J1938; J2919; J3475

== ENCOUNTER 2025-01-14 08:54 | Inpatient (IN) | payer MEDICARE, OTHER ==
[2025-01-14] MEDS: Sodium Chloride 0.9% 10 ML Syringe FLUSH PRN (09:14)
[2025-01-14 09:18] LABS: MEAN PLATELET VOLUME 7.2 fL (7.1-12.4); PLATELET COUNT,PLT 256 x10(3)uL (151-488); RED BLOOD CELL COUNT 4.38 x10(6)uL (3.60-5.20); RED CELL DISTRIBUTION WIDTH 14.6 % (12.3-16.5); WHITE BLOOD CELL COUNT,WBC 14.3 x10-3/uL (3.0-10.3)
[2025-01-14 09:24] LABS: BLOOD UREA NITROGEN,BUN 23 mg/dL (7-18); CARBON DIOXIDE,CO2 33 mmol/L (21-32); CHLORIDE,CL 95 mmol/L (100-110); CREATININE 1.3 mg/dL (0.55-1.02); ESTIMATED GFR 42 mL/min (>60); GLUCOSE RANDOM 115 mg/dL (80-116); POTASSIUM,K 3.5 mmol/L (3.5-5.3); SODIUM,NA 136 mmol/L (135-145)
[2025-01-14 09:30] LABS: A/G RATIO 1.0; ALANINE AMINOTRANSFERASE,ALT 27 U/L (12-36); ASPARTATE AMNIOTRANSFERASE,AST 28 IU/L (5-25); BILIRUBIN TOTAL 0.8 mg/dL (0.1-1.3); PROTEIN TOTAL,TP 7.3 g/dL (6.0-8.0)
[2025-01-14 09:37] LABS: PRO B-TYPE NATRIUR PEPT,BNPPRO 943.0 pg/mL (<=450)
[2025-01-14 09:38] LABS: EST CRCL DRUG DOSING (CG) 25.62 mL/min
[2025-01-14] MEDS: methylPREDNISolone Sodium Succinate 125 MG/2 ML SDV IVPUSH ONE (09:50)
[2025-01-14 09:51] LABS: BASE EXCESS VENOUS,POC 5 mmol/L (-2 - 3+); PCO2 VENOUS,POC 43 mmHg (41-51); PH VENOUS,POC 7.45 pH Units (7.32-7.43)
[2025-01-14] MEDS: Furosemide 40 MG/4 ML VIAL IVPUSH ONE (09:53)
[2025-01-14 09:54] LABS: INFLUENZA A NAA NEGATIVE (NEGATIVE); INFLUENZA B NAA NEGATIVE (NEGATIVE); RESPIRATORY SYNCYTIAL VIR NAA NEGATIVE (NEGATIVE)
[2025-01-14 09:58] LABS: EOSINOPHILS PERCENT MAN 2 % (0-5); LYMPHOCYTES PERCENT MAN 7 % (13-37); MONOCYTES PERCENT MAN 1 % (4-12); SEG NEUTROPHILS PERCENT MAN 90 % (46-82)
[2025-01-14 09:59] LABS: CORONAVIRUS COVID-19 NAA NEGATIVE (NEGATIVE)
[2025-01-14] MEDS ORDERED: Albuterol 0.083% 2.5 MG/3 ML Neb Soln INH PRN (14:27)
[2025-01-14] MEDS ORDERED: Nitroglycerin 0.4 MG Tab.SL SL PRN (14:27)
[2025-01-14] MEDS ORDERED: Acetaminophen 650 MG Tab.ER PO PRN (14:27)
[2025-01-14 14:30] LABS: LACTIC ACID 1.0 mmol/L (0.4-2.0)
[2025-01-14] MEDS: VANCOmycin 1.5 GM/300 ML 1.5 GM in Premix Bag 1 BAG IV ONE (15:20)
[2025-01-14 15:36] LABS: LACTIC ACID 1.3 mmol/L (0.4-2.0)
[2025-01-14] MEDS: Metoprolol Tartrate 5 MG/5 ML SDV IVPUSH PRN (16:33)
[2025-01-14] MEDS ORDERED: Non-Formulary Medication 1 Each (Formoterol [Perforomist] 20 MCG/2 ML Neb) INH SCH (21:00)
[2025-01-14] MEDS: Budesonide 0.5 MG/2 ML Neb Susp INH SCH (21:08)
[2025-01-14] MEDS: methylPREDNISolone Sodium Succinate 40 MG/1 ML SDV IVPUSH SCH (21:10)
[2025-01-15 06:48] LABS: MEAN PLATELET VOLUME 7.3 fL (7.1-12.4); PLATELET COUNT,PLT 207 x10(3)uL (151-488); RED BLOOD CELL COUNT 3.36 x10(6)uL (3.60-5.20); RED CELL DISTRIBUTION WIDTH 13.8 % (12.3-16.5); WHITE BLOOD CELL COUNT,WBC 10.0 x10-3/uL (3.0-10.3)
[2025-01-15 06:58] LABS: A/G RATIO 0.9; ALANINE AMINOTRANSFERASE,ALT 21 U/L (12-36); ASPARTATE AMNIOTRANSFERASE,AST 24 IU/L (5-25); BILIRUBIN TOTAL 0.6 mg/dL (0.1-1.3); BLOOD UREA NITROGEN,BUN 24 mg/dL (7-18); CARBON DIOXIDE,CO2 29 mmol/L (21-32); CHLORIDE,CL 97 mmol/L (100-110); CREATININE 1.2 mg/dL (0.55-1.02); EST CRCL DRUG DOSING (CG) 27.75 mL/min; ESTIMATED GFR 46 mL/min (>60); GLUCOSE RANDOM 162 mg/dL (80-116); PROTEIN TOTAL,TP 5.9 g/dL (6.0-8.0); SODIUM,NA 134 mmol/L (135-145)
[2025-01-15 07:03] LABS: POTASSIUM,K 2.7 mmol/L (3.5-5.3)
[2025-01-15 07:18] LABS: LYMPHOCYTES PERCENT MAN 4 % (13-37); MONOCYTES PERCENT MAN 1 % (4-12); SEG NEUTROPHILS PERCENT MAN 95 % (46-82)
[2025-01-15] MEDS: Mirabegron 25 MG Tab Extended Release PO SCH (09:17)
[2025-01-15] MEDS: Potassium Chloride 20 MEQ in Premix Bag 1 BAG IV SCH (09:48)
[2025-01-15] MEDS ORDERED: Carboxymethylcellulose Sodium 1% Ophth Gel 0.4 ML UD Box of 30 EYEBOTH PRN (13:53)
[2025-01-15] MEDS: Carboxymethylcellulose Sodium 1% Ophth Gel 0.4 ML UD Box of 30 EYEBOTH PRN (13:53)
[2025-01-15] MEDS: VANCOmycin 1 GM/200 ML 1 GM in Premix Bag 1 BAG IV SCH (15:29)
[2025-01-15] MEDS: methylPREDNISolone Sodium Succinate 40 MG/1 ML SDV IVPUSH SCH (20:46)
[2025-01-16 06:41] LABS: MEAN PLATELET VOLUME 7.3 fL (7.1-12.4); PLATELET COUNT,PLT 235 x10(3)uL (151-488); RED BLOOD CELL COUNT 3.33 x10(6)uL (3.60-5.20); RED CELL DISTRIBUTION WIDTH 14.3 % (12.3-16.5); WHITE BLOOD CELL COUNT,WBC 19.6 x10-3/uL (3.0-10.3)
[2025-01-16 06:44] LABS: BLOOD UREA NITROGEN,BUN 25 mg/dL (7-18); CARBON DIOXIDE,CO2 28 mmol/L (21-32); CHLORIDE,CL 98 mmol/L (100-110); CREATININE 1.3 mg/dL (0.55-1.02); EST CRCL DRUG DOSING (CG) 25.62 mL/min; ESTIMATED GFR 42 mL/min (>60); GLUCOSE RANDOM 150 mg/dL (80-116); POTASSIUM,K 3.7 mmol/L (3.5-5.3); SODIUM,NA 135 mmol/L (135-145)
[2025-01-16 07:07] LABS: LYMPHOCYTES PERCENT MAN 1 % (13-37); MONOCYTES PERCENT MAN 4 % (4-12); SEG NEUTROPHILS PERCENT MAN 95 % (46-82)
[2025-01-16] MEDS ORDERED: Non-Formulary Medication 1 Each (Multivitamin With Minerals [One Daily Plus Minerals] 1 EA PO SCH (09:00)
[2025-01-16 10:24] LABS: BASE EXCESS ARTERIAL,POC 1 mmol/L (-2 - 3+); HCO3 ARTERIAL,POC 25 mmol/L (21-28); O2 SATURATION ARTERIAL,POC 95.3 % (94-98); PO2 ARTERIAL,POC 75 mmHg (83-108)
[2025-01-16 12:52] VITALS: BP 156/65; PULSE 122
[2025-01-16 18:29] LABS: MRSA DETECTION BY PCR Not Detected
[2025-01-16 20:02] LABS: LEGIONELLA PNEUMOPHILA AG,URN Negative (Negative)
[2025-01-16 22:46] LABS: STREPTOCOCCUS PNEUMONIAE AG,UR Negative (Negative)
== END 2025-01-16 12:00 | DRG 871 ==
LOC: FB.ED 08:54 → FB.MS 10:41
PROVIDERS: ADMIT Internal Medicine; ATTEND Internal Medicine
PROC: 4A033R1 Measurement of Arterial Saturation, Peripheral, Percutaneous Approach (ICD-10-PCS; principal; 2025-01-14)
PROC: 3E03329 Introduction of Other Anti-infective into Peripheral Vein, Percutaneous Approach (ICD-10-PCS; 2025-01-14)
DX: A41.9 Sepsis, unspecified organism (principal); I21.4 Non-ST elevation (NSTEMI) myocardial infarction; I50.9 Heart failure, unspecified; J18.9 Pneumonia, unspecified organism; J96.21 Acute and chronic respiratory failure with hypoxia; I48.91 Unspecified atrial fibrillation; J44.1 Chronic obstructive pulmonary disease with (acute) exacerbation; Z88.5 Allergy status to narcotic agent; J44.0 Chronic obstructive pulmonary disease with (acute) lower respiratory infection; E87.20 Acidosis, unspecified; I50.32 Chronic diastolic (congestive) heart failure; I48.11 Longstanding persistent atrial fibrillation; Z66 Do not resuscitate; R65.20 Severe sepsis without septic shock; R79.89 Other specified abnormal findings of blood chemistry; I25.10 Atherosclerotic heart disease of native coronary artery without angina pectoris; H91.90 Unspecified hearing loss, unspecified ear; H54.7 Unspecified visual loss; I11.0 Hypertensive heart disease with heart failure; E78.00 Pure hypercholesterolemia, unspecified; I73.9 Peripheral vascular disease, unspecified; K21.9 Gastro-esophageal reflux disease without esophagitis; F41.9 Anxiety disorder, unspecified; F32.A Depression, unspecified; G47.33 Obstructive sleep apnea (adult) (pediatric); E66.9 Obesity, unspecified; Z88.8 Allergy status to other drugs, medicaments and biological substances; Z68.32 Body mass index [BMI] 32.0-32.9, adult; I25.2 Old myocardial infarction; Z79.899 Other long term (current) drug therapy; Z98.49 Cataract extraction status, unspecified eye; Z85.118 Personal history of other malignant neoplasm of bronchus and lung; Z98.890 Other specified postprocedural states; Z79.01 Long term (current) use of anticoagulants; Z90.49 Acquired absence of other specified parts of digestive tract; Z87.891 Personal history of nicotine dependence; Z92.3 Personal history of irradiation; Z95.5 Presence of coronary angioplasty implant and graft; Z99.81 Dependence on supplemental oxygen
CPT/HCPCS: 36415; 71045; 80048; 80053; 80202; 82803; 83605; 83735; 83880; 84484; 85025; 87040; 87070; 87205; 87449; 87637; 87641; 87899; 93005; 93010; 93308; 94640; 96374; 96375; 97165-GO; 99223; 99232; 99238; 99285-25; A9270-GY; J0696; J1271; J1938; J2543; J2919; J3375; J3480; J3490; J7030